=== PATIENT | male | born 1980 | race Caucasian/White ===

== ENCOUNTER 2018-07-22 17:26 | Emergency (ER) | payer OTHER ==
[~2018-07-22] VITALS: Ht 185.4 cm; Wt 117.9 kg
[2018-07-22 17:48] VITALS: BP 145/87
[2018-07-22] MEDS ORDERED: AZITHROMYCIN 250 MG TAB PO ONE (22:00)
[2018-07-22] MEDS ORDERED: KETOROLAC TROMETH 60MG/2ML VIAL IM ONE (22:00)
[2018-07-22] MEDS ORDERED: cefTRIAXone SOD 1,000 MG VL IM ONE (22:00)
== END 2018-07-22 22:34 | disposition home or self-care (01) ==
LOC: ER 17:26
DX: A64 Unspecified sexually transmitted disease (principal); K08.89 Other specified disorders of teeth and supporting structures
CPT/HCPCS: 96372; 99283; J0696; J1885